=== PATIENT | male | born 1950 | race Hispanic/Latino ===

== ENCOUNTER 2022-01-14 17:41 | Emergency (ER) | payer OTHER ==
[2022-01-14 18:21] LABS: BASOPHILS % (AUTO) 1.2 % (0.0-5.0); EOSINOPHILS % (AUTO) 1.4 % (0.0-8.0); LYMPHOCYTES % (AUTO) 26.6 % (21.0-51.0); MEAN CORPUSCULAR HEMOGLOBIN 29.6 pg (27.0-33.0); MEAN CORPUSCULAR HGB CONC 33.1 g/dL (32.0-36.0); MEAN CORPUSCULAR VOLUME 89.6 fL (79-99); NEUTROPHILS % (AUTO) 56.4 % (40.0-77.0); PLATELET COUNT (AUTO) 186 K/uL (130-400); RED BLOOD CELL COUNT(AUTO) 6.14 MIL/uL (4.50-6.20); RED CELL DISTRIBUTION WIDTH 13.8 % (11.0-15.5); WHITE BLOOD COUNT (AUTO) 5.1 K/uL (4.8-10.8)
[2022-01-14 18:27] LABS: CREATININE 1.3 mg/dL (0.5-1.5); POTASSIUM 3.9 mmol/L (3.5-5.1)
[2022-01-14 18:29] LABS: INR 1.15 (0.85-1.15); PROTHROMBIN TIME 12.4 SEC (9.6-11.6)
[2022-01-14 18:30] LABS: PARTIAL THROMBOPLASTIN TIME 34.3 SEC (26.3-35.5)
[2022-01-14 18:32] LABS: ALBUMIN 3.2 g/dL (3.5-5.0)
[2022-01-15 00:30] VITALS: BP 131/65
== END 2022-01-15 00:38 | disposition home or self-care (01) ==
LOC: EDH 17:41
DX: C64.9 Malignant neoplasm of unspecified kidney, except renal pelvis (principal); K92.2 Gastrointestinal hemorrhage, unspecified
CPT/HCPCS: 36415; 80053; 82270; 85014; 85018; 85025; 85610; 85730